=== PATIENT | female | born 1980 | race Caucasian/White ===

== ENCOUNTER 2018-06-10 15:25 | Emergency (ER) | payer MEDICAID, OTHER ==
[2018-06-10] MEDS ORDERED: Sodium Chloride 0.9% 1,000 ML IV ONE (15:37)
[2018-06-10] MEDS ORDERED: DiphenhydrAMINE 50 mg/ml Inj IVP STA (15:39)
[2018-06-10 15:41] VITALS: BP 130/70
--- NOTE | 2018-06-10 15:49 | C.PDOC ---
History Of Present Illness 37 year old female with a history of asthma and prior similar symptoms x2 episodes presents to the ED for new onset lip swelling, redness, and itching prior to arrival. Patient reports visiting a doctor for testing after the x1 episode, trigger is still unknown. (+) Epi pen, did not use Epi-pen today. HPI is limited due to patient's clinical condition. No nausea, vomiting. Time Seen by Provider: 06/10/18 15:37 Chief Complaint (Nursing): Allergic Reaction History Per: Patient History/Exam Limitations: clinical condition Onset/Duration Of Symptoms: Mins (prior to arrival.) Current Symptoms Are (Timing): Still Present Past Medical History Reviewed: Historical Data, Nursing Documentation, Vital Signs Vital Signs: Last Vital Signs Temp 98.0 F 06/10/18 15:29 Pulse 83 06/10/18 15:35 Resp 30 H 06/10/18 15:35 BP 130/70 06/10/18 15:35 Pulse Ox 100 06/10/18 15:35 - Medical History PMH: Pulmonary Embolism (after hysterectomy) Surgical History: Tonsillectomy - [facility] Procedures INJECT/INFUSE NEC (05/29/13) OTH LYSIS-PERITONEAL ADHES (02/05/13) OTH REMOVE BOTH OVARIES/TUBES (02/05/13) OTHER AND UNSPECIFIED SUBTOTAL ABDOMINAL HYSTERECTOMY (02/05/13) UTERINE LES DESTRUCT NEC (02/05/13) Family History: States: Unknown Family Hx - Social History Hx Alcohol Use: No Hx Substance Use: No - Immunization History Hx Tetanus Toxoid Vaccination: No Hx Influenza Vaccination: No Hx Pneumococcal Vaccination: No Review Of Systems Review Of Systems: ROS cannot be obtained secondary to pt's inabilty to answer questions. (limited due to patient's condition.) ENT: Positive for: Other (lip redness, swelling, and itching. ) Gastrointestinal: Negative for: Nausea, Vomiting Physical Exam - Physical Exam Appears: Other (moderate distress.) Skin: Warm, Dry, Other (mild angioedem to the lips and tongue. generalized hives.) Head: Atraumatic, Normacephalic Eye(s): bilateral: Normal Inspection Oral Mucosa: No Drooling Neck: Normal ROM, Supple Chest: Symmetrical Cardiovascular: Rhythm Regular, No Murmur Respiratory: Normal Breath Sounds, No Rales, No Rhonchi, No Stridor, No Wheezing, Other (ticipnic retractions.) Neurological/Psych: Oriented x3, Normal Sensation ED Course And Treatment - Laboratory Results Result Diagrams: 06/10/18 15:45 06/10/18 15:45 O2 Sat by Pulse Oximetry: 100 (RA) Pulse Ox Interpretation: Normal - Radiology CXR: Interpreted by Me CXR Interpretation: Yes: No Acute Disease - Other Rad CXR X-Ray: Viewed By Me, Read By Radiologist Interpretation: FINDINGS: LUNGS: The lungs are well inflated and clear. PLEURA: No pneumothorax or pleural effusion. CARDIOVASCULAR: The heart is normal in size. No aortic atherosclerotic calcifications present. OSSEOUS STRUCTURES: Within normal limits for the patient's age. VISUALIZED UPPER ABDOMEN: Normal. OTHER FINDINGS: None. IMPRESSION: No active pulmonary disease. Critical Care Time - Critical Care Note Total Time (in mins): 90 Documented critical care: time excludes all time spent performing seperately billable procedures. Progress - Re-Evaluation Re-evaluation Note: 06/10/18 17:01 REDNESS SWELLING RESOLVED. VSS APPEARS IMPROVED NARD - Data Reviewed Data Reviewed: Lab, Diagnostic imaging Medical Decision Making Medical Decision Making: Plan: -Blood sent. -CXR -Benadryl -Brethine Inj. -Pepcid -Solu-Medrol Critical Time: 90min. Disposition Counseled Patient/Family Regarding: Studies Performed, Diagnosis, Need For Followup, Rx Given - Disposition Referrals: YOUR,PMD [Other] Disposition: HOME/ ROUTINE Disposition Time: 17:02 Condition: IMPROVED Prescriptions: predniSONE [Prednisone] 60 mg PO DAILY #12 tab Instructions: Angioedema (DC) Forms: [facility] ([facility]) - Clinical Impression Clinical Impression: Allergic urticaria - Scribe Statement The provider has reviewed the documentation as recorded by the Scribe (Zeina Lai) Provider Attestation: All medical record entries made by the Scribe were at my direction and personally dictated by me. I have reviewed the chart and agree that the record accurately reflects my personal performance of the history, physical exam, medical decision making, and the department course for this patient. I have also personally directed, reviewed, and agree with the discharge instructions and disposition.
[2018-06-10 15:50] LABS: BASO % 0.9 % (0.0-2.0); EOS # 0.1 K/uL (0.0-0.7); EOS % 1.3 % (0.0-4.0); HEMOGLOBIN 13.6 g/dL (11.0-16.0); LYMPH # 2.5 K/uL (1.0-4.3); LYMPH % 46.6 % (20.0-40.0); MEAN CELL VOLUME 82.2 fL (81.0-99.0); MEAN CORPUSCULAR HEMOGLOBIN 28.3 pg (27.0-31.0); MEAN CORPUSCULAR HGB CONC 34.4 g/dL (33.0-37.0); MONO # 0.3 K/uL (0.0-0.8); MONO % 5.5 % (0.0-10.0); NEUT # 2.5 K/uL (1.8-7.0); NEUT % 45.7 % (50.0-75.0); NRBC % 0.1 % (0.0-2.0); RBC 4.79 Mil/uL (3.80-5.20); RED CELL DISTRIBUTION WIDTH 14.6 % (11.5-14.5); WHITE BLOOD COUNT 5.4 K/uL (4.8-10.8)
[2018-06-10 16:07] LABS: BLOOD UREA NITROGEN 10 mg/dL (7-17); CALCIUM 9.8 mg/dl (8.6-10.4); GFR NON-AFRICAN AMERICAN > 60
--- NOTE | 2018-06-10 16:14 | RAD ---
Date of service: 06/10/2018 PROCEDURE: CHEST RADIOGRAPH, 1 VIEW HISTORY: SOB COMPARISON: None available. FINDINGS: LUNGS: The lungs are well inflated and clear. PLEURA: No pneumothorax or pleural effusion. CARDIOVASCULAR: The heart is normal in size. No aortic atherosclerotic calcifications present. OSSEOUS STRUCTURES: Within normal limits for the patient's age. VISUALIZED UPPER ABDOMEN: Normal. OTHER FINDINGS: None. IMPRESSION: No active pulmonary disease.
[2018-06-10 16:30] VITALS: PULSE 99; RESP 18; TEMP 98
[2018-06-10 17:03] VITALS: O2SAT 100
== END 2018-06-10 17:26 | disposition home or self-care (01) ==
LOC: C.ER 15:25
DX: L50.0 Allergic urticaria (principal)
CPT/HCPCS: 71045; 80048; 85025; 96361; 96372; 96374; 96375; 99285; J1200; J2930; J3105; J7030